=== PATIENT | male | born 1975 | race Caucasian/White ===

== ENCOUNTER 2017-02-13 22:20 | Emergency (ER) | payer MEDICARE, MEDICAID ==
--- NOTE | ~2017-02-13 | ER ---
PATIENT'S NAME: TODD BASHIR [facility] AGE: 41 Y [address] ROOM: [place] [id number] LOCATION: [facility] ADMIT DATE: 02/13/2017 ER/Outpatient Report DISCHARGE DATE: 02/13/2017 FAMILY PHYSICIAN: Daniel Lane MD ATTENDING PHYSICIAN: Jose Beal Time of Arrival: 2226 hours. Time of Evaluation: 2226 hours. CHIEF COMPLAINT: Fall, left shoulder injury. HISTORY OF PRESENT ILLNESS: Approximately 20 minutes prior to arrival, the patient was walking in the bathroom and fell onto the sink. He denies hitting his head. Complains of pain primarily in the anterior shoulder area. Has a history of multiple falls. ALLERGIES: NO KNOWN ALLERGIES. CURRENT MEDICATIONS: On his chart and reviewed by me. PAST MEDICAL HISTORY: Includes traumatic brain injury. His medical history list was reviewed as supplied by [facility] staff. SOCIAL HISTORY: He lives in a [facility] facility home. REVIEW OF SYSTEMS: All negative other than those mentioned in the HPI. PHYSICAL EXAMINATION: VITAL SIGNS: He weighs 103 kg. Blood pressure is 119/62, pulse of 56, respirations 16, and O2 saturation was 95% on room air. GENERAL: He is awake, alert, and oriented x4. SKIN: [place], warm, and dry. RESPIRATIONS: Even and nonlabored. Lung sounds are clear throughout. HEART: Regular rate and rhythm. EXTREMITIES: He complains of pain to the anterior shoulder-cervical area. Has strong radial pulses on the left. Has sensation to his fingers. Painful to move the shoulder. PATIENT'S NAME: TODD BASHIR [facility] AGE: 41 Y [address] ROOM: [place], [place] [address] LOCATION: [facility] ADMIT DATE: 02/13/2017 ER/Outpatient Report DISCHARGE DATE: 02/13/2017 FAMILY PHYSICIAN: Daniel Lane MD ATTENDING PHYSICIAN: Jose Beal LABORATORY DATA AND X-RAYS: X-ray was completed, reviewed with Dr. Beal. No acute bony abnormalities seen. Does have some AC separation. IMPRESSION: Contusion to the left shoulder. PLAN: Home, rest. Continue his current medications. Ice to the shoulder area. Follow up with his primary provider if symptoms warrant in the next 2 to 3 days. The staff that was with him verbalizes understanding. The patient verbalizes understanding. MARQUIAT TOMPKINS APRN FOR MD KIKA DILLON/chacorta /[id number] d: 02/14/17 0428 t: 02/16/17 1804, OUTPATIENT REPORT
[~2017-02-13 22:20] MED LIST: AUGMENTIN875 MG PO; BACLOFEN20 MG PO; DEEP SEA SPRAY NOSE; FIBER LAX625 MG PO; FLOMAX0.4 MG PO; GENERLAC10 GM/15 M PO; KEPPRA PO; KLONOPIN0.5 MG PO; KLONOPIN1 MG PO; LOPRESSOR12.5 MG/0. PO; MUCINEX ER PO; PROTONIX40 MG PO; SENOKOT S (S1 TABLET PO; SEROQUEL XR; TREXAN (REVIA)50 MG PO; TRILEPTAL600 MG PO; TYLENOL325 MG PO
== END 2017-02-13 23:11 | disposition disaster alternative care site (69) ==
LOC: GACC 22:20
DX: S40.012A Contusion of left shoulder, initial encounter (principal); W01.198A Fall on same level from slipping, tripping and stumbling with subsequent striking against other object, initial encounter; Y92.002 Bathroom of unspecified non-institutional (private) residence as the place of occurrence of the external cause

== ENCOUNTER → 2017-05-10 | Outpatient (CLI) | payer MEDICARE, MEDICAID | END | disposition disaster alternative care site (69) | LOC: GRAD 13:17 | DX: G40.209 Localization-related (focal) (partial) symptomatic epilepsy and epileptic syndromes with complex partial seizures, not intractable, without status epilepticus (principal); G82.50 Quadriplegia, unspecified; R27.0 Ataxia, unspecified; R53.1 Weakness; R25.1 Tremor, unspecified; R90.82 White matter disease, unspecified ==